=== PATIENT | female | born 1960 ===

== ENCOUNTER 2017-10-05 13:30 | Emergency (ER) | payer BC ==
[2017-10-05 14:08] VITALS: TEMP 97.8; BMI 40.4
[2017-10-05] MEDS ORDERED: Morphine 2 mg/ml ISec IVP STA (14:20)
[2017-10-05] MEDS ORDERED: Morphine 2 mg/2 mL syringe IVP STA ×2 (14:27→14:55)
[2017-10-05] MEDS ORDERED: Sodium Chloride 0.9% 1,000 ML IV ONE (14:30)
--- NOTE | 2017-10-05 14:32 | ED PDOC ---
Arrival/HPI - General Chief Complaint: Abdominal Pain Time Seen by Provider: 10/05/17 14:01 - History of Present Illness Narrative History of Present Illness (Text): 10/05/17 14:21 Patient is a 56 year old female with a past medical history significant for diverticultis who presents to the ED complaining of LLQ abdominal pain since Monday night (2 days ago). Patient says it come on gradually and describes it as stabbing 10 out of 10 pain that lasts for about 15 minutes then lessens in intensity. Patient says the pain radiates to her lower back. Patient says she had a similar pain 2 years ago and was diagnosed with diverticulitis. Patient says noting makes the pain better but it is worsened when straining to have a bowel movement. Patient says she occasionally has constipation but for the past couple days has been alternating between constipation and loose bowel movements without any noted blood in her stool. She admits to associated headache, chills , and sweats. She denies chest pain, SOB, palpitations, nausea, vomiting, urinary changes, hematochezia, and melena. PMH: diverticulitis Meds: cannot remember the name Allergies: NKDA PSH: C-sections x2, cholecystectomy, carpal tunnel release b/l FH: denies SH: denies tobacco, alcohol, and drug use (Zuly Boyd) Past Medical History - Past History Past History: No Previous - Infectious Disease Hx of Infectious Diseases: None - Tetanus Immunization Tetanus Immunization: Unknown - Past Medical History Past Medical History: No Previous - Cardiac Hx Cardiac Disorders: No (pt and daughter deny cabg) - Pulmonary Hx Respiratory Disorders: No - Neurological Hx Neurological Disorder: No - HEENT Hx HEENT Disorder: No - Renal Hx Renal Disorder: No - Endocrine/Metabolic Hx Endocrine Disorders: No - Hematological/Oncological Hx Blood Disorders: No - Integumentary Hx Dermatological Disorder: No - Musculoskeletal/Rheumatological Hx Musculoskeletal Disorders: Yes Hx Falls: No Other/Comment: FOOT PROBLEM - Gastrointestinal Hx Gastrointestinal Disorders: No - Genitourinary/Gynecological Hx Genitourinary Disorders: No - Psychiatric Hx Psychophysiologic Disorder: No Hx Depression: No Hx Emotional Abuse: No Hx Physical Abuse: No Hx Substance Use: No - Surgical History Hx Section: Yes Hx Cholecystectomy: Yes Hx Hysterectomy: Yes Hx Musculoskeletal Surgery: Yes Other/Comment: HAND SURGERY, FOOT SURGERY - Anesthesia Hx Anesthesia Reactions: (vomiting) - Suicidal Assessment Feels Threatened In Home Enviroment: No Family/Social History Family/Social History: No Known Family HX Smoking Status: Never Smoked Hx Alcohol Use: No Hx Substance Use: No Hx Substance Use Treatment: No Allergies/Home Meds Allergies/Adverse Reactions: Allergies No Known Allergies Allergy (Verified 10/05/17 14:06) Home Medications: Home Meds Medication Instructions Recorded Confirmed Meloxicam [Mobic] 15 mg PO DAILY PRN 03/26/16 03/26/16 Nabumetone [Relafen] 500 mg PO BID 03/26/16 03/26/16 Acetaminophen/Butalbital/Caf 2 tab PO Q8H PRN 03/28/16 03/28/16 [Fioricet] Review of Systems - Physician Review All systems were reviewed & negative as marked: Yes - Review of Systems Constitutional: Fevers (subjective), Night Sweats. absent: Fatigue Eyes: absent: Vision Changes ENT: absent: Hearing Changes Respiratory: absent: SOB, Wheezing Cardiovascular: absent: Chest Pain, Palpitations, Edema, Calf Pain Gastrointestinal: Abdominal Pain (LLQ), Constipation, Diarrhea, Nausea. absent : Vomiting, Hematochezia Genitourinary Female: Normal. absent: Dysuria, Frequency, Hematuria Musculoskeletal: Back Pain (low back). absent: Neck Pain Skin: absent: Rash Neurological: Headache. absent: Dizziness Physical Exam Vital Signs Reviewed: Yes Temperature: Afebrile Blood Pressure: Normal Pulse: Regular Respiratory Rate: Normal Appearance: Positive for: Well-Appearing, Non-Toxic, Uncomfortable Pain Distress: Moderate Mental Status: Positive for: Alert and Oriented X 3 - Systems Exam Head: Present: Atraumatic, Normocephalic Pupils: Present: PERRL Extroacular Muscles: Present: EOMI Conjunctiva: Present: Normal Mouth: Present: Moist Mucous Membranes Neck: Present: Normal Range of Motion Respiratory/Chest: Present: Clear to Auscultation, Good Air Exchange. No: Respiratory Distress, Accessory Muscle Use Cardiovascular: Present: Regular Rate and Rhythm, Normal S1, S2. No: Murmurs Abdomen: Present: Tenderness (LLQ and LUQ), Normal Bowel Sounds, Guarding ( voluntary), Other (obese abdomen). No: Distention, Peritoneal Signs, Rebound Back: Present: Paraspinal Tenderness (lumbar level b/l). No: CVA Tenderness Upper Extremity: Present: Normal Inspection, Neurovascularly Intact. No: Cyanosis, Edema Lower Extremity: Present: Normal Inspection, Neurovascularly Intact. No: Edema Neurological: Present: GCS=15, Speech Normal Skin: Present: Warm, Dry, Normal Color. No: Rashes Psychiatric: Present: Alert, Oriented x 3, Normal Insight, Normal Concentration Vital Signs Temp Pulse Resp BP Pulse Ox 10/05/17 17:42 18 99 10/05/17 17:39 84 18 128/78 99 10/05/17 14:45 132/80 10/05/17 14:07 97.8 F 88 19 131/74 100 Medical Decision Making ED Course and Treatment: 10/05/17 14:50 Plan: - CBC, CMP - CT abdomen/pelvis - Morphine for pain control Plan discussed with Dr. Shepard 10/05/17 16:33 Labs show leukocytosis and CT shows diverticulitis without complication. Patient would like to go home on PO antibiotics and I told her that would be fine as long as she returns if she notices any worsening of symptoms. CT Abdomen/Pelvis: FINDINGS: LOWER THORAX: Unremarkable. LIVER: Unremarkable. No gross lesion or ductal dilatation. GALLBLADDER AND BILE DUCTS: Gallbladder removed PANCREAS: Unremarkable. No gross lesion or ductal dilatation. SPLEEN: Unremarkable. ADRENALS: Unremarkable. No mass. KIDNEYS AND URETERS: Unremarkable. No hydronephrosis. No solid mass. VASCULATURE: Unremarkable. No aortic aneurysm. BOWEL: There is diverticulitis of the descending colon near the junction with the sigmoid. There is a moderate amount of inflammatory changes and mural thickening. There is no evidence of abscess. There is no evidence of free air APPENDIX: Normal appendix. PERITONEUM: Unremarkable. No free fluid. No free air. LYMPH NODES: Unremarkable. No enlarged lymph nodes. BLADDER: Unremarkable. REPRODUCTIVE: Unremarkable. BONES: No acute fracture. OTHER FINDINGS: None. IMPRESSION: There is diverticulitis of the descending colon near the junction with the sigmoid. There is a moderate amount of inflammatory changes and mural thickening. There is no evidence of abscess. There is no evidence of free air (Zuly Boyd) - Lab Interpretations Lab Results: 10/05/17 14:50 10/05/17 14:50 Lab Results 10/05/17 15:24: Urine Color Yellow, Urine Appearance Clear, Urine pH >=9.0, Ur Specific [place] 1.015, Urine Protein 30 H, Urine Glucose (UA) Negative, Urine Ketones Negative, Urine Blood Negative, Urine Nitrate Negative, Urine Bilirubin Negative, Urine Urobilinogen 0.2, Ur Leukocyte Esterase Negative, Urine RBC 0 - 2, Urine WBC 0 - 2, Ur Epithelial Cells 6 - 8, Amorphous Sediment Few, Urine Bacteria Many, Urine Other Fiber 10/05/17 14:50: Sodium 145, Potassium 4.3, Chloride 103, Carbon Dioxide 27, Anion Gap 19, BUN 9, Creatinine 0.6 L, Est GFR ( Amer) > 60, Est GFR (Non -Af Amer) > 60, Random Glucose 95, Calcium 8.8, Total Bilirubin 0.6, AST 22, ALT 41, Alkaline Phosphatase 70, Total Protein 8.4 H, Albumin 4.5, Globulin 3.8 , Albumin/Globulin Ratio 1.2, Lipase 44 10/05/17 14:50: WBC 11.9 H D, RBC 4.78, Hgb 13.7, Hct 40.6, MCV 84.9, MCH 28.7, MCHC 33.7, RDW 13.7, Plt Count 268, MPV 9.9, Gran % 68.4 H, Lymph % (Auto) 20.6 L, Carver % (Auto) 8.8 H, Eos % (Auto) 1.9, Baso % (Auto) 0.3, Gran # 8.13 H, Lymph # (Auto) 2.5, Carver # (Auto) 1.0 H, Eos # (Auto) 0.2, Baso # (Auto) 0.03 - RAD Interpretation Radiology Orders: 10/05/17 14:20 ABD & PELVIS IV CONTRAST ONLY [CT] Stat - Medication Orders Current Medication Orders: Discontinued Medications Sodium Chloride (Sodium Chloride 0.9%) 1,000 mls @ 250 mls/hr IV .Q4H ONE Stop: 10/05/17 18:29 Last Admin: 10/05/17 14:52 Dose: 250 mls/hr eMAR Start Stop Document 10/05/17 14:52 SF (Rec: 10/05/17 14:52 [id number]) Intravenous Solution Start Date 10/05/17 Start Time 14:52 End Date 10/05/17 End time 18:52 Total Infusion Time 240 Morphine Sulfate (Morphine) 2 mg IVP STAT STA Stop: 10/05/17 14:21 Last Admin: 10/05/17 14:58 Dose: Morphine Sulfate (Morphine) 2 mg IVP STAT STA Stop: 10/05/17 14:56 Last Admin: 10/05/17 14:58 Dose: 2 mg IVP Administration Document 10/05/17 14:58 SF (Rec: 10/05/17 14:58 [id number]) Charges for Administration # of IVP Administrations 1 - 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 / has examined the patient and agrees with the treatment plan. Disposition/Present on Arrival - Present on Arrival Any Indicators Present on Arrival: No History of DVT/PE: No History of Uncontrolled Diabetes: No Urinary Catheter: No History of Decub. Ulcer: No History Surgical Site Infection Following: None - Disposition Have Diagnosis and Disposition been Completed?: Yes Disposition Time: 16:39 - Disposition Diagnosis: Diverticulitis of intestine without perforation or abscess Disposition: HOME/ ROUTINE Condition: STABLE Discharge Instructions (ExitCare): High Fiber Diet, Diverticulitis (DC) Print Language: VIET[place]ESE Additional Instructions: Please follow up with your primary care doctor by the end of the week. Please take the antibiotics prescribed to you until completion. If you experience any new or worsening symptoms, please return the the Emergency department. Prescriptions: Ciprofloxacin HCl [Cipro] 500 mg PO BID #20 tablet Docusate Sodium [Colace] 100 mg PO BID #20 capsule Metronidazole [Flagyl] 500 mg PO BID #20 tablet oxyCODONE/Acetaminophen [Percocet 5/325 mg Tab] 1 tab PO Q6 #12 tab Forms: [employer] (Mauritanian)
[2017-10-05 15:34] LABS: BASO # 0.03 K/mm3 (0.0-2.0); BASO % 0.3 % (0.0-3.0); EOS # 0.2 (0.0-0.7); EOS % 1.9 % (1.5-5.0); GRAN # 8.13 (1.4-6.5); GRAN % 68.4 % (50.0-68.0); HEMOGLOBIN 13.7 g/dL (12.0-16.0); LYMPH # 2.5 (1.2-3.4); LYMPH % 20.6 % (22.0-35.0); MEAN CELL VOLUME 84.9 fl (80.0-105.0); MEAN CORPUSCULAR HEMOGLOBIN 28.7 pg (25.0-35.0); MEAN CORPUSCULAR HGB CONC 33.7 g/dl (31.0-37.0); MEAN PLATELET VOLUME 9.9 fl (7.0-11.0); MONO % 8.8 % (1.0-6.0); RBC 4.78 10^6/uL (3.5-6.1); RED CELL DISTRIBUTION WIDTH 13.7 % (11.5-14.5); WHITE BLOOD COUNT 11.9 10^3/ul (4.5-11.0)
[2017-10-05 15:35] LABS: PH,URINE >=9.0 (4.7-8.0); URINE BILIRUBIN NEGATIVE (NEGATIVE); URINE BLOOD NEGATIVE (NEGATIVE); URINE GLUCOSE (UA) NEGATIVE (NEGATIVE); URINE LEUKOCYTE ESTERASE NEGATIVE Leu/uL (NEGATIVE); URINE PROTEIN 30 mg/dL (<30 mg/dL); URINE UROBILINOGEN 0.2 E.U./dL (<1 E.U./dL)
[2017-10-05 15:38] LABS: URINE APPEARANCE CLEAR (CLEAR); URINE COLOR YELLOW (YELLOW)
[2017-10-05 15:38] LABS: ALB/GLOB RATIO 1.2 (1.1-1.8); ALBUMIN 4.5 g/dL (3.0-4.8); ALT/SGPT 41 U/L (7-56); AST/SGOT 22 U/L (14-36); BLOOD UREA NITROGEN 9 mg/dL (7-21); CALCIUM 8.8 mg/dL (8.4-10.5); GFR AFRICAN-AMERICAN > 60; GFR NON-AFRICAN AMERICAN > 60; LIPASE 44 U/L (23-300)
[2017-10-05 15:42] LABS: URINE BACTERIA MANY (NEG); URINE RBC 0 - 2 /hpf (0-2); URINE WBC 0 - 2 /hpf (0-6)
[2017-10-05 15:44] LABS: URINE AMORPHOUS SEDIMENT FEW
[2017-10-05] MEDS ORDERED: Iohexol 350 MG/100 ML VIAL ONE (15:52)
--- NOTE | 2017-10-05 16:22 | CT ---
PROCEDURE: CT Abdomen and Pelvis with contrast HISTORY: abdominal pain COMPARISON: None. TECHNIQUE: Contrast dose: 100 cc of Omni 350 Radiation dose: Total exam DLP = 918 mGy-cm. This CT exam was performed using one or more of the following dose reduction techniques: Automated exposure control, adjustment of the mA and/or kV according to patient size, and/or use of iterative reconstruction technique. FINDINGS: LOWER THORAX: Unremarkable. LIVER: Unremarkable. No gross lesion or ductal dilatation. GALLBLADDER AND BILE DUCTS: Gallbladder removed PANCREAS: Unremarkable. No gross lesion or ductal dilatation. SPLEEN: Unremarkable. ADRENALS: Unremarkable. No mass. KIDNEYS AND URETERS: Unremarkable. No hydronephrosis. No solid mass. VASCULATURE: Unremarkable. No aortic aneurysm. BOWEL: There is diverticulitis of the descending colon near the junction with the sigmoid. There is a moderate amount of inflammatory changes and mural thickening. There is no evidence of abscess. There is no evidence of free air APPENDIX: Normal appendix. PERITONEUM: Unremarkable. No free fluid. No free air. LYMPH NODES: Unremarkable. No enlarged lymph nodes. BLADDER: Unremarkable. REPRODUCTIVE: Unremarkable. BONES: No acute fracture. OTHER FINDINGS: None. IMPRESSION: There is diverticulitis of the descending colon near the junction with the sigmoid. There is a moderate amount of inflammatory changes and mural thickening. There is no evidence of abscess. There is no evidence of free air
[2017-10-05 17:40] VITALS: BP 128/78; PULSE 84; RESP 18; O2SAT 99
== END 2017-10-05 17:42 | disposition home or self-care (01) ==
LOC: ED 13:30
DX: K57.32 Diverticulitis of large intestine without perforation or abscess without bleeding (principal); Z90.49 Acquired absence of other specified parts of digestive tract
CPT/HCPCS: 74177; 80053; 81001; 83690; 85025; 87086; 96361; 96374; 99285; J2270; J7030; Q9967

== ENCOUNTER 2017-11-09 23:36 | Emergency (ER) | payer BC ==
[2017-11-09 23:37] VITALS: BMI 40.4
[2017-11-10] VITALS: TEMP 98.2
--- NOTE | 2017-11-10 00:50 | ED PDOC ---
Arrival/HPI - General Chief Complaint: Abdominal Pain Time Seen by Provider: 11/10/17 00:36 Historian: Patient - History of Present Illness Narrative History of Present Illness (Text): 11/10/17 00:49 Josee Avila is a 56 year old female, whose past medical history includes diverticulitis and bronchitis, who presents to the Emergency department accompanied by relative complaining of abdominal pain. Patient states she has been experiencing worsening LLQ abdominal pain with associated nausea and constipation for the past few days. Relative states patient was recently seen in the Emergency department for similar symptoms, diagnosed with diverticulitis, and advised to stay in the hospital. Relative states patient did not wish to stay and discharged home on Cipro, Flagyl, Colace, and Percocet. Patient took medication as directed, but reports temporary relief. Patient also reports dry cough, which she states is secondary to her bronchitis. Patient denies any history of tobacco abuse, fever, chills, vomiting , diarrhea, headache, dizziness, or any other complaints. PMD: Dr. Edilson Jackson Symptom Onset: Gradual Symptom Course: Worsening Activities at Onset: Light Context: Home Past Medical History - Provider Review Nursing Documentation Reviewed: Yes - Past History Past History: No Previous - Infectious Disease Hx of Infectious Diseases: None - Tetanus Immunization Tetanus Immunization: Unknown - Past Medical History Past Medical History: No Previous - Cardiac Hx Cardiac Disorders: No (pt and daughter deny cabg) - Pulmonary Hx Respiratory Disorders: No - Neurological Hx Neurological Disorder: No - HEENT Hx HEENT Disorder: No - Renal Hx Renal Disorder: No - Endocrine/Metabolic Hx Endocrine Disorders: No - Hematological/Oncological Hx Blood Disorders: No - Integumentary Hx Dermatological Disorder: No - Musculoskeletal/Rheumatological Hx Musculoskeletal Disorders: Yes Hx Falls: No Other/Comment: FOOT PROBLEM - Gastrointestinal Hx Gastrointestinal Disorders: No - Genitourinary/Gynecological Hx Genitourinary Disorders: No - Psychiatric Hx Psychophysiologic Disorder: No Hx Depression: No Hx Emotional Abuse: No Hx Physical Abuse: No Hx Substance Use: No - Surgical History Hx Section: Yes Hx Cholecystectomy: Yes Hx Hysterectomy: Yes Hx Musculoskeletal Surgery: Yes Other/Comment: HAND SURGERY, FOOT SURGERY - Anesthesia Hx Anesthesia Reactions: (vomiting) - Suicidal Assessment Feels Threatened In Home Enviroment: No Family/Social History - Physician Review Nursing Documentation Reviewed: Yes Family/Social History: Unknown Family HX Smoking Status: Never Smoked Hx Alcohol Use: No Hx Substance Use: No Hx Substance Use Treatment: No Allergies/Home Meds Allergies/Adverse Reactions: Allergies No Known Allergies Allergy (Verified 10/05/17 14:06) Home Medications: Home Meds Medication Instructions Recorded Confirmed Meloxicam [Mobic] 15 mg PO DAILY PRN 03/26/16 03/26/16 Nabumetone [Relafen] 500 mg PO BID 03/26/16 03/26/16 Acetaminophen/Butalbital/Caf 2 tab PO Q8H PRN 03/28/16 03/28/16 [Fioricet] Review of Systems - Physician Review All systems were reviewed & negative as marked: Yes - Review of Systems Constitutional: Normal. absent: Fevers Eyes: Normal ENT: Normal Respiratory: Cough Cardiovascular: Normal. absent: Chest Pain Gastrointestinal: Abdominal Pain, Constipation, Nausea. absent: Diarrhea, Hematochezia Genitourinary Female: Normal. absent: Dysuria, Frequency, Hematuria, Urine Output Changes, Vaginal Bleeding Musculoskeletal: Back Pain. absent: Neck Pain Skin: Normal. absent: Rash Neurological: Normal. absent: Headache, Dizziness Endocrine: Normal Hemo/Lymphatic: Normal Psychiatric: Normal Physical Exam Vital Signs Reviewed: Yes Vital Signs Temp Pulse Resp BP Pulse Ox 11/10/17 04:29 95 H 17 112/80 100 11/10/17 03:54 98 H 18 110/68 100 11/09/17 23:58 98.2 F 106 H 17 114/49 L 98 Temperature: Afebrile Blood Pressure: Normal Pulse: Regular Respiratory Rate: Normal Appearance: Positive for: Non-Toxic Mental Status: Positive for: Alert and Oriented X 3 - Systems Exam Head: Present: Atraumatic, Normocephalic Pupils: Present: PERRL Extroacular Muscles: Present: EOMI Conjunctiva: Present: Normal Mouth: Present: Moist Mucous Membranes Neck: Present: Normal Range of Motion Respiratory/Chest: Present: Clear to Auscultation, Good Air Exchange. No: Respiratory Distress, Accessory Muscle Use Cardiovascular: Present: Regular Rate and Rhythm, Normal S1, S2. No: Murmurs Abdomen: Present: Tenderness (Left-sided abdominal tenderness). No: Distention , Peritoneal Signs Back: Present: Normal Inspection Upper Extremity: Present: Normal Inspection. No: Cyanosis, Edema Lower Extremity: Present: Normal Inspection. No: Edema Neurological: Present: GCS=15, CN II-XII Intact, Speech Normal Skin: Present: Warm, Dry, Normal Color. No: Rashes Psychiatric: Present: Alert, Oriented x 3, Normal Insight, Normal Concentration Medical Decision Making ED Course and Treatment: 11/10/17 00:49 Impression: 56 year old female complaining of LLQ abdominal pain, nausea, and constipation. Plan: -- CT Abdomen and Pelvis with IV contrast -- Labs, lipase -- Urinalysis, urine cultures -- Pepcid -- Zofran -- Morphine -- Reassess and disposition Prior Visits: Notes and results from previous visits were reviewed. On 10/05/2017, pt was seen in the Emergency department for LLQ pain. Pt diagnosed with diverticulitis and discharged home on Cipro, Flagyl, Colace, and Percocet. Progress Notes: 11/10/17 03:49 CT Abdomen and Pelvis shows: Lung bases: Unremarkable. No mass. No consolidation. ABDOMEN: Liver: There is a diffuse decrease in hepatic parenchymal density, consistent with fatty infiltration. Gallbladder and bile ducts: Include cholecystectomy. There is a mild, expected degree of intrahepatic and common bile duct dilation. No calcified stones. Pancreas: Unremarkable. No mass. No ductal dilation. Spleen: Unremarkable. No splenomegaly. Adrenals: Unremarkable. No mass. Kidneys and ureters: There is a cyst in the left kidney. No hydronephrosis. Stomach and bowel: Moderate diverticulosis is present in the sigmoid and descending colon. No obstruction. There is a segment of wall thickening at the junction of the sigmoid and descending colon, consistent in appearance with acute diverticulitis. There is moderate inflammatory stranding. No perforation or abscess. PELVIS: Appendix: A normal appendix is identified. Bladder: Unremarkable. No mass. Reproductive: Unremarkable as visualized. ABDOMEN and PELVIS: Intraperitoneal space: No free air. No significant fluid collection. Bones/joints: No acute fracture. No dislocation. Soft tissues: Unremarkable. Vasculature: Unremarkable. No abdominal aortic aneurysm. Lymph nodes: Unremarkable. No enlarged lymph nodes. IMPRESSION: Findings consistent with acute diverticulitis. No perforation or abscess. Dictated and Authenticated by: Kennedi Rai MD 11/10/2017 3:46 AM Eastern Time ([place]) 11/10/17 04:16 Discussed lab results and CT scan findings with pt and family. Pt was offered hospital admission for further evaluation. Pt states she does not wish to stay and wants to go home. Discussed risks of leaving against medical advice with pt , pt continued to wish to leave. Pt will sign out against medical advice. Pt given rx of Cipro, Flagyl, Motrin, and Zofran. This patient is choosing to leave against medical advice. I have personally explained to the patient that choosing to do so may result in permanent bodily harm or . I have discussed at great length that without further evaluation and monitoring there may be unforeseen circumstances and/or deterioration causing permanent bodily harm or as a result of their choice. The patient is alert, oriented, and shows the mental capacity to make clear decisions regarding the patients health care at this time. The patient continues to wish to leave against medical advice. In light of the patients decision to leave AMA , patient is aware of the importance of following up as instructed. The patient has been advised that they should return to the ED immediately if they change their mind at any time, or if their condition begins to change or worsen in any way. - Lab Interpretations Lab Results: 11/10/17 01:13 11/10/17 01:13 Lab Results 11/10/17 01:13: Urine Color Yellow, Urine Appearance Clear, Urine pH 7.0, Ur Specific [place] 1.015, Urine Protein Negative, Urine Glucose (UA) Negative, Urine Ketones Negative, Urine Blood Trace-intact H, Urine Nitrate Negative, Urine Bilirubin Negative, Urine Urobilinogen 0.2, Ur Leukocyte Esterase Negative , Urine RBC 0 - 2, Urine WBC 0 - 2, Ur Epithelial Cells 1 - 3, Urine Bacteria Trace 11/10/17 01:13: Sodium 142, Potassium 4.3, Chloride 99, Carbon Dioxide 31, Anion Gap 16, BUN 14, Creatinine 0.7, Est GFR ( Amer) > 60, Est GFR (Non- Af Amer) > 60, Random Glucose 110, Calcium 9.4, Magnesium 2.0, Total Bilirubin 0.4, AST 26, ALT 33, Alkaline Phosphatase 74, Total Protein 8.2, Albumin 4.5, Globulin 3.6, Albumin/Globulin Ratio 1.3, Lipase 70 11/10/17 01:13: WBC 14.2 H, RBC 4.80, Hgb 13.6, Hct 40.5, MCV 84.4, MCH 28.3, MCHC 33.6, RDW 13.8, Plt Count 275, MPV 10.1, Gran % 68.6 H, Lymph % (Auto) 21.7 L, [place] % (Auto) 7.3 H, Eos % (Auto) 2.3, Baso % (Auto) 0.1, Gran # 9.75 H , Lymph # (Auto) 3.1, [place] # (Auto) 1.0 H, Eos # (Auto) 0.3, Baso # (Auto) 0.02 I have reviewed the lab results: Yes - RAD Interpretation Radiology Orders: 11/10/17 00:58 ABD & PELVIS IV CONTRAST ONLY [CT] Stat Machine Inker: Radiologist - Medication Orders Current Medication Orders: Discontinued Medications Ciprofloxacin (Cipro) 500 mg PO STAT STA PRN Reason: Protocol Stop: 11/10/17 04:16 Last Admin: 11/10/17 04:28 Dose: 500 mg Famotidine (Pepcid) 20 mg IVP STAT STA Stop: 11/10/17 00:58 Last Admin: 11/10/17 01:15 Dose: 20 mg IVP Administration Document 11/10/17 01:15 OCS (Rec: 11/10/17 01:15 OCS [id number]) Charges for Administration # of IVP Administrations 1 Metronidazole (Flagyl) 500 mg PO STAT STA PRN Reason: Protocol Stop: 11/10/17 04:16 Last Admin: 11/10/17 04:28 Dose: 500 mg Morphine Sulfate (Morphine) 2 mg IVP STAT STA Stop: 11/10/17 00:58 Last Admin: 11/10/17 01:14 Dose: 2 mg IVP Administration Document 11/10/17 01:14 OCS (Rec: 11/10/17 01:14 OCS [id number]) Charges for Administration # of IVP Administrations 1 Ondansetron HCl (Zofran Inj) 4 mg IVP STAT STA Stop: 11/10/17 00:58 Last Admin: 11/10/17 01:15 Dose: 4 mg IVP Administration Document 11/10/17 01:15 OCS (Rec: 11/10/17 01:15 OCS [id number]) Charges for Administration # of IVP Administrations 1 - Scribe Statement The provider has reviewed the documentation as recorded by the Scribe Tiffanie Carly Provider Abraham Attestation: All medical record entries made by the Scribalfredo were at my direction and personally dictated by me. I have reviewed the chart and agree that the record accurately reflects my personal performance of the history, physical exam, medical decision making, and the department course for this patient. I have also personally directed, reviewed, and agree with the discharge instructions and disposition. Disposition/Present on Arrival - Present on Arrival Any Indicators Present on Arrival: No History of DVT/PE: No History of Uncontrolled Diabetes: No Urinary Catheter: No History of Decub. Ulcer: No History Surgical Site Infection Following: None - Disposition Have Diagnosis and Disposition been Completed?: Yes Diagnosis: Diverticulitis Disposition: AGAINST MEDICAL ADVICE Disposition Time: 03:40 Condition: UNKNOWN Discharge Instructions (ExitCare): Diverticulitis (DC) Additional Instructions: JOSEE AVILA, thank you for letting us take care of you today. Your provider was Sohan Shepard DO and you were treated for abdominal pain. The emergency medical care you received today was directed at your acute symptoms. If you were prescribed any medication, please fill it and take as directed. It may take several days for your symptoms to resolve. Return to the Emergency Department if your symptoms worsen, do not improve, or if you have any other problems. Please contact your doctor or call one of the physicians/clinics you have been referred to that are listed on the Patient Visit Information form that is included in your discharge packet. Bring any paperwork you were given at discharge with you along with any medications you are taking to your follow up visit. Our treatment cannot replace ongoing medical care by a primary care provider outside of the emergency department. Thank you for allowing the [facility] team to be part of your care today. YOU SIGNED OUT AGAINST MEDICAL ADVICE. FOLLOW UP WITH YOUR PRIMARY CARE DOCTOR SOON POSSIBLE. RETURN TO THE EMERGENCY ROOM IF YOU HAVE ANY CONCERNS. Prescriptions: Ciprofloxacin [Cipro] 500 mg PO BID #20 tab Ibuprofen [Motrin] 600 mg PO Q6 PRN #20 tab PRN Reason: Pain, Moderate (4-7) metroNIDAZOLE [Flagyl] 500 mg PO TID #30 tab Ondansetron ODT [Zofran ODT] 8 mg PO Q8 PRN #20 odt PRN Reason: Nausea/Vomiting Referrals: [facility] Profile [facility]q, [Non-Staff] - Follow up with primary Forms: Getting-in (Prydeinig)
[2017-11-10] MEDS ORDERED: Morphine 2 mg/2 mL syringe IVP STA (00:57)
[2017-11-10 01:48] LABS: ALB/GLOB RATIO 1.3 (1.1-1.8); ALBUMIN 4.5 g/dL (3.0-4.8); ALT/SGPT 33 U/L (7-56); AST/SGOT 26 U/L (14-36); BLOOD UREA NITROGEN 14 mg/dL (7-21); CALCIUM 9.4 mg/dL (8.4-10.5); GFR AFRICAN-AMERICAN > 60; GFR NON-AFRICAN AMERICAN > 60; LIPASE 70 U/L (23-300)
[2017-11-10] MEDS ORDERED: Iohexol 350 MG/100 ML VIAL ONE (02:02)
[2017-11-10 02:03] LABS: BASO # 0.02 K/mm3 (0.0-2.0); BASO % 0.1 % (0.0-3.0); EOS # 0.3 (0.0-0.7); EOS % 2.3 % (1.5-5.0); GRAN # 9.75 (1.4-6.5); GRAN % 68.6 % (50.0-68.0); HEMOGLOBIN 13.6 g/dL (12.0-16.0); LYMPH # 3.1 (1.2-3.4); LYMPH % 21.7 % (22.0-35.0); MEAN CELL VOLUME 84.4 fl (80.0-105.0); MEAN CORPUSCULAR HEMOGLOBIN 28.3 pg (25.0-35.0); MEAN CORPUSCULAR HGB CONC 33.6 g/dl (31.0-37.0); MEAN PLATELET VOLUME 10.1 fl (7.0-11.0); MONO % 7.3 % (1.0-6.0); RBC 4.8 10^6/uL (3.5-6.1); RED CELL DISTRIBUTION WIDTH 13.8 % (11.5-14.5); URINE BILIRUBIN NEGATIVE (NEGATIVE); URINE BLOOD TRACE-INTACT (NEGATIVE); URINE GLUCOSE (UA) NEGATIVE (NEGATIVE); URINE LEUKOCYTE ESTERASE NEGATIVE Leu/uL (NEGATIVE); URINE PROTEIN NEGATIVE mg/dL (<30 mg/dL); URINE UROBILINOGEN 0.2 E.U./dL (<1 E.U./dL); WHITE BLOOD COUNT 14.2 10^3/ul (4.5-11.0)
[2017-11-10 02:05] LABS: URINE APPEARANCE CLEAR (CLEAR); URINE COLOR YELLOW (YELLOW)
[2017-11-10 02:10] LABS: URINE BACTERIA TRACE (NEG); URINE RBC 0 - 2 /hpf (0-2); URINE WBC 0 - 2 /hpf (0-6)
[2017-11-10 03:55] VITALS: O2SAT 100
[2017-11-10 04:31] VITALS: BP 112/80; PULSE 95; RESP 17
--- NOTE | 2017-11-10 08:27 | CT ---
PROCEDURE: CT Abdomen and Pelvis with contrast HISTORY: left-sided abdominal pain - h/o diverticulitis COMPARISON: None. TECHNIQUE: Contrast dose: 100 mL Omnipaque 350 Radiation dose: Total exam DLP = 1000.40 mGy-cm. This CT exam was performed using one or more of the following dose reduction techniques: Automated exposure control, adjustment of the mA and/or kV according to patient size, and/or use of iterative reconstruction technique. FINDINGS: LOWER THORAX: Unremarkable. LIVER: Mild hepatomegaly. Diffuse diminished attenuation of the liver consistent with fatty infiltration. There is a nonspecific 8 mm low-attenuation lesion in the posterior right hepatic lobe. This is not evident on prior examination possibly due to differences in phase of enhancement at the time of examination. No other mass identified. Smooth contour. No biliary dilatation. GALLBLADDER AND BILE DUCTS: Status post cholecystectomy. Mild dilatation of the common bile duct up to 10 mm diameter, consistent with prior cholecystectomy. PANCREAS: Unremarkable. No gross lesion or ductal dilatation. SPLEEN: Unremarkable. ADRENALS: Unremarkable. No mass. KIDNEYS AND URETERS: 2.0 cm mid left renal cortical cyst and 9 mm right lower pole low-density renal mass, likely cortical cysts. No change from prior. No renal calculus or hydronephrosis. VASCULATURE: Unremarkable. No aortic aneurysm. BOWEL: Diverticulosis of the descending and sigmoid colon. Diverticulitis at the junction of the descending and sigmoid colon decreased in extent when compared to the prior examination. Less mural thickening at the site of focal diverticulitis. No abscess. No pneumoperitoneum. No bowel obstruction. No other abnormal bowel loops are identified. Please note that colonoscopy is advised when diverticulitis is clinically quiescent for evaluation of possible colonic neoplasm. APPENDIX: Normal appendix. PERITONEUM: Unremarkable. No free fluid. No free air. LYMPH NODES: Unremarkable. No enlarged lymph nodes. BLADDER: Unremarkable. REPRODUCTIVE: Status post hysterectomy BONES: No acute fracture. OTHER FINDINGS: None. IMPRESSION: Acute diverticulitis of the junction of the descending and sigmoid colon. Sigmoid diverticulosis. The extent of diverticulitis is diminished when compared to examination of 10/05/2017. No abscess or pneumoperitoneum. Mild hepatomegaly with fatty infiltration of the liver. Minor findings as above. Preliminary interpretation of this examination was reported by [facility] at 3:46 a.m. on 11/10/2017. There is concurrence of this report with the preliminary interpretation.
== END 2017-11-10 04:29 | disposition left against medical advice (07) ==
LOC: ED 23:36
DX: K57.32 Diverticulitis of large intestine without perforation or abscess without bleeding (principal)
CPT/HCPCS: 74177; 80053; 81001; 83690; 83735; 85025; 87086; 96374; 96375; 99283; J2270; J2405; Q9967